=== PATIENT | male | born 1965 | race Caucasian/White ===

== ENCOUNTER 2017-07-14 14:39 | Emergency (ER) | payer OTHER ==
[2017-07-14 14:52] VITALS: RESP 18; O2SAT 94
--- NOTE | 2017-07-14 15:01 | EDPHY ---
H & P Time Seen by Provider: 07/14/17 14:51 HPI/ROS: CHIEF COMPLAINT: "I do not feel well " HISTORY OF PRESENT ILLNESS: The patient is a 52-year-old male who presents emergency department with multiple complaints. His symptoms started on Saturday. He cleaned some mold from his ceiling in the bathroom. On Saturday he developed a sore throat. This worsened over . He describes bilateral throat pain. It is moderate. He then developed a nonproductive cough. He has pain when he coughs. He describes mild shortness of breath. No chest pain at rest. He has had diffuse body aches and back pain. He describes chills over the past 24 hr. He took DayQuil today at noon and stated his symptoms felt worse. Patient describes a mild diffuse headache. No rash. No recent travel. No sick contacts at home. No neck stiffness. No photophobia. No nausea or vomiting. No diarrhea. REVIEW OF SYSTEMS: My complete review of systems is negative except as mentioned in the HPI. Past Medical/Surgical History: Negative Past surgical history: Orthopedic surgery Social history: The patient does not smoke. He denies drugs or alcohol. Family history: Asthma Smoking Status: Never smoked Physical Exam: 37, 140/83, 90, 18, 94% on room air GENERAL: No acute distress, alert. HEENT: Eyes normal to inspection, normal pharynx, no signs of dehydration. NECK: No thyromegaly, no lymphadenopathy, supple. No meningismus. RESPIRATORY: Clear to auscultation bilaterally, no rales, rhonchi or wheezing. CVS: Regular rate and rhythm, no rubs, murmurs, or gallops. ABDOMEN: Soft, nontender, nondistended, no organomegaly. BACK: Normal to inspection, no CVA tenderness. SKIN: Normal color, no rash, warm, dry. No pallor. EXTREMITIES: No pedal edema, no calf tenderness, no Homans sign or cords, no joint swelling. NEURO/PSYCH: Alert and oriented x3, normal mood and affect, normal motor sensory exam. No obvious cranial nerve deficit. Constitutional: Initial Vital Signs Temperature (C) 37 C 07/14/17 14:50 Heart Rate 90 07/14/17 14:50 Respiratory Rate 18 07/14/17 14:50 Blood Pressure 140/83 H 07/14/17 14:50 O2 Sat (%) 94 07/14/17 14:50 O2 Delivery Mode Room Air Allergies/Adverse Reactions: No Known Allergies Allergy (Unverified 07/14/17 15:04) Home Medications: Medication Instructions Recorded levOFLOXACIN [Levaquin] 750 mg PO DAILY #10 tab 07/14/17 Medical Decision Making ED Course/Re-evaluation: In the emergency department I discussed possible etiologies with the patient. I answered all his questions. IV was placed. Laboratory studies, chest x-ray were ordered. Patient given Toradol 30 mg IV. He is given normal saline 1 L IV for hydration. I reviewed the patient's laboratory studies. His CBC chemistry unremarkable. His influenza screen was positive for influenza A. Rapid strep was negative. Chest x-ray: The patient appears to have a posterior infiltrate. I discussed the results with the patient. I answered all his questions. Patient was given a dose of Levaquin 750 mg. He was given a prescription upon discharge. He was given warnings prior to leaving. He will return with worsening symptoms. Differential Diagnosis: My differential includes but is not limited to influenza, viral illness, bronchitis, pneumonia, mold exposure, bacteremia, sepsis, meningitis, encephalitis - Data Points Laboratory Results: Laboratory Results 07/14/17 15:13 07/14/17 15:13 07/14/17 07/14/17 07/14/17 Unknown 15:13 15:13 WBC 7.31 10^3/uL 10^3/uL (3.80-9.50) RBC 5.32 10^6/uL 10^6/uL (4.40-6.38) Hgb 16.2 g/dL g/dL (13.7-17.5) Hct 46.5 % % (40.0-51.0) MCV 87.4 fL fL (81.5-99.8) MCH 30.5 pg pg (27.9-34.1) MCHC 34.8 g/dL g/dL (32.4-36.7) RDW 12.3 % % (11.5-15.2) Plt Count 179 10^3/uL 10^3/uL (150-400) MPV 11.4 fL fL (8.7-11.7) Neut % (Auto) 82.6 % H % (39.3-74.2) Lymph % (Auto) 6.0 % L % (15.0-45.0) [place] % (Auto) 10.1 % % (4.5-13.0) Eos % (Auto) 0.5 % L % (0.6-7.6) Baso % (Auto) 0.5 % % (0.3-1.7) Nucleat RBC Rel Count 0.0 % % (0.0-0.2) Absolute Neuts (auto) 6.03 10^3/uL 10^3/uL (1.70-6.50) Absolute Lymphs (auto) 0.44 10^3/uL L 10^3/uL (1.00-3.00) Absolute Monos (auto) 0.74 10^3/uL 10^3/uL (0.30-0.80) Absolute Eos (auto) 0.04 10^3/uL 10^3/uL (0.03-0.40) Absolute Basos (auto) 0.04 10^3/uL 10^3/uL (0.02-0.10) Absolute Nucleated RBC 0.00 10^3/uL 10^3/uL (0-0.01) Immature Gran % 0.3 % % (0.0-1.1) Immature Gran # 0.02 10^3/uL 10^3/uL (0.00-0.10) Sodium 140 mEq/L mEq/L (134-144) Potassium 4.0 mEq/L mEq/L (3.5-5.2) Chloride 100 mEq/L mEq/L (97-110) Carbon Dioxide 22 mEq/l mEq/l (22-31) Anion Gap 18 mEq/L H mEq/L (8-16) BUN 17 mg/dL mg/dL (7-23) Creatinine 1.2 mg/dL mg/dL (0.7-1.3) Estimated GFR > 60 Glucose 119 mg/dL H mg/dL (70-100) Calcium 9.4 mg/dL mg/dL (8.5-10.4) Total Bilirubin 0.7 mg/dL mg/dL (0.1-1.4) Conjugated Bilirubin 0.2 mg/dL mg/dL (0.0-0.5) Unconjugated Bilirubin 0.5 mg/dL mg/dL (0.0-1.1) AST 26 IU/L IU/L (17-59) ALT 39 IU/L IU/L (21-72) Alkaline Phosphatase 66 IU/L IU/L (38-126) Total Protein 7.3 g/dL g/dL (6.3-8.2) Albumin 3.9 g/dL g/dL (3.5-5.0) Influenza A,B Rapid Group A Strep Screen Group A Strep DNA Pending 07/14/17 07/14/17 15:10 15:05 WBC RBC Hgb Hct MCV MCH MCHC RDW Plt Count MPV Neut % (Auto) Lymph % (Auto) [place] % (Auto) Eos % (Auto) Baso % (Auto) Nucleat RBC Rel Count Absolute Neuts (auto) Absolute Lymphs (auto) Absolute Monos (auto) Absolute Eos (auto) Absolute Basos (auto) Absolute Nucleated RBC Immature Gran % Immature Gran # Sodium Potassium Chloride Carbon Dioxide Anion Gap BUN Creatinine Estimated GFR Glucose Calcium Total Bilirubin Conjugated Bilirubin Unconjugated Bilirubin AST ALT Alkaline Phosphatase Total Protein Albumin Influenza A,B Rapid POSITIVE FOR FLU A H (NEGATIVE) Group A Strep Screen NEGATIVE (NEGATIVE) Group A Strep DNA Medications Given: Discontinued Medications Sodium Chloride (Ns) 1,000 mls @ 0 mls/hr IV ONCE ONE PRN Reason: Wide Open Stop: 07/14/17 15:04 Last Admin: 07/14/17 15:13 Dose: 1,000 mls Ketorolac Tromethamine (Toradol) 30 mg IVP EDNOW ONE Stop: 07/14/17 15:04 Last Admin: 07/14/17 15:14 Dose: 30 mg Departure - Departure Disposition: Home, Routine, Self-Care Clinical Impression: Fever, Body aches, Influenza A Condition: Good Instructions: Fever in Adults (ED), Influenza (ED) Additional Instructions: Take your entire course of antibiotics. Return with worsening shortness of breath, cough, persistent fever or any other concerns. Referrals: [facility] [Other] - 5-7 days, call for appt.
[2017-07-14] MEDS ORDERED: KETOROLAC 30 MG/1 ML SDV IVP ONE (15:03)
[2017-07-14] MEDS ORDERED: NS 1,000 ML IV ONE (15:03)
[2017-07-14 15:36] LABS: PLATELET COUNT 179 10^3/uL (150-400)
[2017-07-14] MEDS ORDERED: ONDANSETRON 4 MG/2 ML VIAL IVP ONE (16:28)
[2017-07-14] MEDS ORDERED: HYDROCODONE/APAP 5/325 TAB PO ONE (16:28)
[2017-07-14 16:45] VITALS: BP 137/89; PULSE 78; TEMP 99
== END 2017-07-14 16:45 | disposition home or self-care (01) ==
LOC: CED 14:39
DX: J10.1 Influenza due to other identified influenza virus with other respiratory manifestations (principal)
CPT/HCPCS: 71046-PO; 80048-PO; 80076-PO; 85025-PO; 87400-PO; 87880-PO; 96374; J1885; J2405